=== PATIENT | male | born 1975 | race Hispanic/Latino ===

== ENCOUNTER 2022-07-04 19:56 | Emergency (ER) | payer OTHER ==
[~2022-07-04] VITALS: Ht 185.4 cm; Wt 110.2 kg
[2022-07-04 21:24] VITALS: BP 108/62
[2022-07-04] MEDS ORDERED: KETOROLAC 30MG VIAL (30MG/ML) IM ONE (21:30)
== END 2022-07-04 22:07 | disposition home or self-care (01) ==
LOC: EDH 19:56
DX: M20.011 Mallet finger of right finger(s) (principal)
CPT/HCPCS: 99283; 73140; J1885

== ENCOUNTER 2022-12-19 11:12 | Emergency (ER) | payer OTHER ==
[~2022-12-19] VITALS: Ht 185.4 cm; Wt 111.1 kg
[2022-12-19] MEDS ORDERED: ACETAMINOPHEN 500 MG TABLET PO ONE ×2 (12:00)
[2022-12-19] MEDS ORDERED: ALBUTEROL 0.083% 2.5 MG/3 ML INH IH ONE ×2 (12:00)
[2022-12-19 12:13] VITALS: BP 111/69
== END 2022-12-19 12:40 | disposition home or self-care (01) ==
LOC: EDH 11:12
DX: R51.9 Headache, unspecified (principal); H53.149 Visual discomfort, unspecified; R06.02 Shortness of breath; J45.909 Unspecified asthma, uncomplicated; M19.90 Unspecified osteoarthritis, unspecified site; Z98.890 Other specified postprocedural states
CPT/HCPCS: 93005; 94640